=== PATIENT | female | born 1950 | race Two or more races ===

== ENCOUNTER 2020-09-12 16:54 | Observation (INO) | payer OTHER ==
[~2020-09-12] VITALS: Ht 154.9 cm; Wt 72.5 kg
[2020-09-12] MEDS ORDERED: cloNIDine HCL 0.1 MG TAB PO ONE (17:00)
[2020-09-12 17:22] LABS: Basophils # (auto) 0.1 10 ^3/uL (0-0.2); Eosinophils # (auto) 0.1 10 ^3/uL (0-0.8); Eosinophils % (auto) 0.8 % (0.0-7.0); Lymphocytes # (auto) 1.3 10 ^3/uL (0.4-5.4); Lymphocytes % (auto) 13.4 % (10.0-50.0); Mean Corpuscular Hemoglobin 30.4 pg (28.0-32.0); Mean Corpuscular Hgb Conc. 34.9 g/dL (32.0-36.0); Mean Corpuscular Volume 87.2 fL (80.0-100.0); Monocytes # (auto) 0.4 10 ^3/uL (0-1.3); Monocytes % (auto) 4.6 % (0.0-12.0); Neutrophils # (auto) 7.5 10 ^3/uL (1.6-8.6); Neutrophils % (auto) 80.2 % (37.0-80.0); Red Blood Cells 4.92 10^6/uL (4.0-5.20); Red Cell Distribution Width 13.5 % (11.8-14.3); White Blood Cell 9.4 10^3/uL (4.4-10.8)
[2020-09-12 17:36] LABS: Albumin 3.4 g/dL (3.4-5.0); Anion Gap 7 (5-15); Blood Urea Nitrogen 24 mg/dL (7-18); Calcium 8.7 mg/dL (8.5-10.1); Carbon Dioxide 24 mmol/L (21-32); Chloride 108 mmol/L (98-107); Glucose 149 mg/dL (74-106); Magnesium 2.5 mg/dL (1.6-2.6); Potassium 3.8 mmol/L (3.5-5.1); Sodium 139 mmol/L (136-145)
[2020-09-12 17:40] LABS: Alanine Aminotransferase 39 U/L (13-56); Alkaline Phosphatase 122 U/L (45-117); Aspartate Aminotransferase 40 U/L (15-37); BUN/Creatinine Ratio 26.7; Bilirubin, Total 0.5 mg/dL (0.2-1.0); GFR African American 79 mL/min; GFR Non-African American 66 mL/min; Total Protein 8.7 g/dL (6.4-8.2)
[2020-09-12 18:49] LABS: Urine Bacteria NONE SEEN /hpf (None Seen); Urine Blood TRACE /uL (Negative); Urine Specific Gravity 1.008 (1.001-1.035); Urine WBC 3 /hpf (0 - 5)
[2020-09-12] MEDS ORDERED: ONDANSETRON HCL 4 MG/2 ML VIAL IV PRN (21:30)
[2020-09-12] MEDS ORDERED: ASPirin-EC 325mg tab PO ONE (21:30)
[2020-09-12] MEDS ORDERED: hydrALAZINE HCL 20 MG/ML VL IV PRN (21:30)
[2020-09-12] MEDS ORDERED: NITROGLYCERIN 0.4 MG SL TAB SL PRN (21:30)
[2020-09-12] MEDS ORDERED: MORPHINE SULFATE INJECTION 2 MG/ML SYRG IV PRN (21:30)
[2020-09-12] MEDS ORDERED: ACETAMINOPHEN 325 MG TAB PO PRN (21:30)
[2020-09-12] MEDS: ENOXAPARIN SOD 40 MG/0.4 ML SYRINGE SC SCH (21:48)
[2020-09-12] MEDS ORDERED: IOHEXOL 350 MG/ML 100ML IJ ONE (21:57)
[2020-09-12 22:00] VITALS: BP 131/65
[2020-09-12 22:46] VITALS: BP 131/65
[2020-09-13] MEDS ORDERED: ASCO500T11 PO (00:14)
[2020-09-13] MEDS ORDERED: MAGN64TA5 PO (00:15)
[2020-09-13] MEDS ORDERED: B-CO1TAB32 PO (00:15)
[2020-09-13 05:00] VITALS: BP 134/67
[2020-09-13 05:31] LABS: Basophils # (auto) 0.1 10 ^3/uL (0-0.2); Basophils % (auto) 0.9 % (0.0-2.0); Eosinophils # (auto) 0.1 10 ^3/uL (0-0.8); Hematocrit 37.9 % (36.0-46.0); Hemoglobin 13.5 g/dL (12.2-16.2); Lymphocytes # (auto) 1.8 10 ^3/uL (0.4-5.4); Lymphocytes % (auto) 25.9 % (10.0-50.0); Mean Corpuscular Hemoglobin 31.1 pg (28.0-32.0); Mean Corpuscular Hgb Conc. 35.7 g/dL (32.0-36.0); Monocytes # (auto) 0.5 10 ^3/uL (0-1.3); Monocytes % (auto) 7.3 % (0.0-12.0); Neutrophils # (auto) 4.5 10 ^3/uL (1.6-8.6); Neutrophils % (auto) 63.9 % (37.0-80.0); Nucleated Red Blood Cells % 0.2 %; Red Blood Cells 4.35 10^6/uL (4.0-5.20); Red Cell Distribution Width 13.5 % (11.8-14.3)
[2020-09-13 05:58] LABS: Potassium 3.7 mmol/L (3.5-5.1)
[2020-09-13 06:06] LABS: Calcium 8.1 mg/dL (8.5-10.1)
[2020-09-13 09:00] VITALS: BP 138/73
[2020-09-13] MEDS: ASPirin-EC 81 mg tab PO SCH (10:33)
[2020-09-13] MEDS: amLODIPine BESYLATE 5 MG TAB PO SCH (10:35)
[2020-09-13] MEDS: ENOXAPARIN SOD 40 MG/0.4 ML SYRINGE SC SCH (10:35)
[2020-09-13 12:31] VITALS: BP 140/71
[2020-09-13 16:53] VITALS: BP 156/78
[2020-09-13] MEDS ORDERED: ATORVASTATIN 20 MG TAB PO SCH (22:00)
[2020-09-13 22:17] VITALS: BP 153/76
[2020-09-14 04:41] VITALS: BP 150/70
[2020-09-14 05:20] LABS: Basophils # (auto) 0.1 10 ^3/uL (0-0.2); Basophils % (auto) 0.8 % (0.0-2.0); Eosinophils # (auto) 0.2 10 ^3/uL (0-0.8); Eosinophils % (auto) 3.3 % (0.0-7.0); Hematocrit 40.8 % (36.0-46.0); Hemoglobin 14.4 g/dL (12.2-16.2); Lymphocytes # (auto) 1.7 10 ^3/uL (0.4-5.4); Mean Corpuscular Hemoglobin 30.8 pg (28.0-32.0); Mean Corpuscular Hgb Conc. 35.2 g/dL (32.0-36.0); Mean Corpuscular Volume 87.5 fL (80.0-100.0); Monocytes # (auto) 0.6 10 ^3/uL (0-1.3); Monocytes % (auto) 8.4 % (0.0-12.0); Neutrophils # (auto) 4.1 10 ^3/uL (1.6-8.6); Neutrophils % (auto) 61.5 % (37.0-80.0); Nucleated Red Blood Cells % 0.2 %; Red Blood Cells 4.66 10^6/uL (4.0-5.20); Red Cell Distribution Width 13.1 % (11.8-14.3); White Blood Cell 6.6 10^3/uL (4.4-10.8)
[2020-09-14 05:37] LABS: Albumin 3.1 g/dL (3.4-5.0); Calcium 8.3 mg/dL (8.5-10.1); Potassium 3.6 mmol/L (3.5-5.1)
[2020-09-14 05:41] LABS: BUN/Creatinine Ratio 16.3; Bilirubin, Total 0.6 mg/dL (0.2-1.0); Total Protein 7.7 g/dL (6.4-8.2)
[2020-09-14 08:00] VITALS: BP 150/70
[2020-09-14 08:52] VITALS: BP 132/68
[2020-09-14 08:58] VITALS: BP 150/70
[2020-09-14] MEDS: amLODIPine BESYLATE 5 MG TAB PO SCH (09:39)
[2020-09-14] MEDS: ASPirin-EC 81 mg tab PO SCH (09:40)
[2020-09-14] MEDS: ENOXAPARIN SOD 40 MG/0.4 ML SYRINGE SC SCH (09:40)
[2020-09-14] MEDS ORDERED: CLOPIDOGREL BISULFATE 75 MG TAB PO SCH (10:00)
[2020-09-14 13:19] VITALS: BP 167/69
== END 2020-09-14 15:45 | disposition home or self-care (01) ==
LOC: EDBD 16:54 → ER 16:54 → TELE 21:22 → INTOOBSV 21:22 → TELE-CENTR 22:46 → TELE 22:46 → UNDODISOB 09-14 14:30
PROVIDERS: ADMIT Hospitalist; ATTEND Hospitalist
DX: I63.9 Cerebral infarction, unspecified (principal); Z20.822 Contact with and (suspected) exposure to COVID-19; I62.9 Nontraumatic intracranial hemorrhage, unspecified; I16.0 Hypertensive urgency; R73.9 Hyperglycemia, unspecified; I10 Essential (primary) hypertension; Z79.02 Long term (current) use of antithrombotics/antiplatelets; Z79.82 Long term (current) use of aspirin; Z79.899 Other long term (current) drug therapy
CPT/HCPCS: 36415; 70450; 70496; 70498; 70551; 71045; 80048; 80053; 80061; 81001; 83036; 83735; 84443; 84484; 85025; 87426; 93005; 93306; 96372; 96374; 99285; G0378; J0360; J1650; Q9967